=== PATIENT | female | born 1985 | race African-American/Black ===

== ENCOUNTER 2022-11-16 15:27 | Emergency (ER) | payer MEDICAID ==
[~2022-11-16] VITALS: Ht 152.4 cm; Wt 43.1 kg
[2022-11-16 15:27] VITALS: BP_SYST 124
--- NOTE | 2022-11-16 15:30 | NUR ---
BROUGHT BACK TO BED #3 AND TRIAGED. REPORT GIVEN TO BETO
--- NOTE | 2022-11-16 15:35 | NUR ---
Pt brought by self, A&OX4, pt presents to ER with spasms on feet today, VSS, skin pink and warm, cap refill <3, pt anxious, will cont to monitor,
--- NOTE | 2022-11-16 15:45 | NUR ---
Dr Valdes evaluating patient at bedside
[2022-11-16] MEDS ORDERED: LORazepam 2 MG/ML VIAL IM ONE (16:00)
[2022-11-16 16:29] VITALS: BP_SYST 124
--- NOTE | 2022-11-16 16:30 | NUR ---
Patient given written and verbal discharge instructions and verbalizes understanding. ER MD discussed with patient the results and treatment provided. Patient in stable condition. ID arm band removed. No Rx given. Patient educated on pain management and to follow up with PMD. Pain Scale 2/10 . Opportunity for questions provided and answered. Medication side effect fact sheet provided.
[2022-11-23] MEDS ORDERED: MAGN400T10 PO (16:58)
== END 2022-11-16 16:30 | disposition home or self-care (01) ==
LOC: SED 15:27
DX: R29.0 Tetany (principal); M79.671 Pain in right foot; M79.672 Pain in left foot; Z79.899 Other long term (current) drug therapy
CPT/HCPCS: 99283; 96372; J2060